=== PATIENT | female | born 1965 | race Caucasian/White ===

== ENCOUNTER → 2024-06-21 14:16 | Outpatient (REF) | payer BC, SELFPAY | LOC: WDC 14:16 | PROVIDERS: ATTENDING PHYSICIAN Obstetrics & Gynecology; FAMILY PHYSICIAN Family Medicine | DX: Z12.31 Encounter for screening mammogram for malignant neoplasm of breast (principal) | CPT/HCPCS: 77063; 77067 ==

== ENCOUNTER → 2024-07-09 14:05 | Outpatient (REF) | payer BC, SELFPAY | LOC: RAD 14:05 | PROVIDERS: ATTENDING PHYSICIAN Obstetrics & Gynecology; FAMILY PHYSICIAN Family Medicine; OTHER PHYSICIAN Physical Medicine & Rehabilitation | DX: R10.2 Pelvic and perineal pain (principal) | CPT/HCPCS: 76830; 76856 ==

== ENCOUNTER 2024-11-04 06:25 | Day surgery (SDC) | payer BC, SELFPAY | END 2024-11-04 16:11 | disposition home or self-care (01) | LOC: GI 06:25 | PROVIDERS: ATTENDING PHYSICIAN Internal Medicine Gastroenterology | DX: Z12.11 Encounter for screening for malignant neoplasm of colon (principal); K64.0 First degree hemorrhoids; R10.84 Generalized abdominal pain; R11.0 Nausea; K44.9 Diaphragmatic hernia without obstruction or gangrene; K22.2 Esophageal obstruction; K31.7 Polyp of stomach and duodenum; K21.00 Gastro-esophageal reflux disease with esophagitis, without bleeding; K63.5 Polyp of colon; K29.50 Unspecified chronic gastritis without bleeding; K31.A0 Gastric intestinal metaplasia, unspecified | CPT/HCPCS: 45380; 43239; 88305; 88342 ==